=== PATIENT | female | born 1965 | race Caucasian/White ===

== ENCOUNTER 2017-01-18 19:30 | Emergency (ER) | payer MEDICAID ==
[~2017-01-18 19:30] MED LIST: ALBUTEROL SULFAT3 ML IH; BACTRIM1 TAB PO; CLA10 PO; LOSARTAN POTASS25 M1 PO; MEDDP PO; NORCO1 TA2 PO; PHE25 PO; PULMICORT180 MCG/Ac INH; SING10 PO
[2017-01-18 20:53] VITALS: BP 152/98
== END 2017-01-18 20:53 | disposition home or self-care (01) ==
LOC: ED 19:30
DX: R30.0 Dysuria (principal); I10 Essential (primary) hypertension; R35.0 Frequency of micturition; R50.9 Fever, unspecified; J45.909 Unspecified asthma, uncomplicated

== ENCOUNTER 2017-04-18 13:13 | Emergency (ER) | payer MEDICAID ==
[~2017-04-18] VITALS: Ht 154.9 cm; Wt 72.6 kg
[2017-04-18 17:54] VITALS: BP 152/96
== END 2017-04-18 17:54 | disposition home or self-care (01) ==
LOC: ED 13:13
DX: S13.9XXA Sprain of joints and ligaments of unspecified parts of neck, initial encounter (principal); S33.5XXA Sprain of ligaments of lumbar spine, initial encounter; M19.072 Primary osteoarthritis, left ankle and foot; M19.042 Primary osteoarthritis, left hand; J45.909 Unspecified asthma, uncomplicated; W18.30XA Fall on same level, unspecified, initial encounter; Y93.89 Activity, other specified; Y99.8 Other external cause status; Y92.89 Other specified places as the place of occurrence of the external cause

== ENCOUNTER 2017-09-02 11:47 | Emergency (ER) | payer MEDICAID ==
[~2017-09-02] VITALS: Ht 157.5 cm; Wt 74.0 kg
[2017-09-02 12:11] VITALS: BP 123/78; Ht 157.5 cm; Wt 74.0 kg
== END 2017-09-02 12:43 | disposition home or self-care (01) ==
LOC: ED 11:47
DX: B34.9 Viral infection, unspecified (principal); J45.909 Unspecified asthma, uncomplicated; J44.9 Chronic obstructive pulmonary disease, unspecified; I10 Essential (primary) hypertension

== ENCOUNTER 2018-09-20 11:07 | Emergency (ER) | payer OTHER ==
[~2018-09-20] VITALS: Ht 154.9 cm; Wt 73.0 kg
[~2018-09-20 11:07] MED LIST changes: +CYCLOBENZAPRINE5 MG PO; +DOXYCYCLINE HY100 MG PO; +LAC PO; +MOT800 PO; +ZES5 PO; +ZIT250 PO
[2018-09-20 11:29] VITALS: Ht 154.9 cm; Wt 73.0 kg
[2018-09-20 13:10] VITALS: BP 146/90
== END 2018-09-20 13:10 | disposition home or self-care (01) ==
LOC: ED 11:07
DX: M25.562 Pain in left knee (principal); M79.642 Pain in left hand; J44.9 Chronic obstructive pulmonary disease, unspecified; I10 Essential (primary) hypertension